=== PATIENT | female | born 1975 | race American Indian/Alaskan Native ===

== ENCOUNTER 2022-06-02 13:56 | Emergency (ER) | payer SELFPAY ==
[2022-06-02] MEDS ORDERED: dexAMETHasone 4 MG/ML VIAL IV ONE (15:23)
[2022-06-02] MEDS ORDERED: METOCLOPRAMIDE 10 MG/2 ML INJ IV ONE (15:23)
[2022-06-02] MEDS ORDERED: diphenhydrAMINE 50 MG/ML VIAL IV ONE (15:23)
[2022-06-02] MEDS ORDERED: SODIUM CHLORIDE 0.9% 1000 ML 1,000 ML IV ONE (15:23)
--- NOTE | 2022-06-02 15:28 | Emergency Department Report ---
ED Headache HPI - General Chief Complaint: Fever Stated Complaint: FEVER Time Seen by Provider: 06/02/22 14:46 - History of Present Illness Initial Comments: 47-year-old black female with a past medical history of anemia presents to the emergency department for evaluation of headache, dizziness, fatigue, and fever. She states that she went to the urgent care this morning for above symptoms stating that symptoms have been persistent for the last 3 to 4 days and worse this morning. He states that she had a fever of 103.92 days ago along with a persistent cough. She was seen at urgent care where they did an EKG, and EKG sh owed an enlarged heart for provider or urgent care so she was sent here by ambulance. Patient denies chest pain, shortness of breath, nausea, vomiting, diaphoresis, and runny nose. Timing/Duration: other (4 to 5 days) Quality: moderate Head Injury Location: frontal Associated Symptoms: fatigue, facial pain, fever/chills. denies: confusion, flushing, loss of consciousness, nausea/vomiting, nasal congestion, nasal drainage, seizures, sinus infection, stiff neck, vision changes, weakness Allergies/Adverse Reactions: Allergies cephalexin [From Keflex] Allergy (Verified 06/02/22 14:07) Unknown ED Review of Systems ROS: Stated complaint: FEVER Other details as noted in HPI Comment: All other systems reviewed and negative Constitutional: fever, malaise, weakness. denies: chills Eyes: eye pain. denies: eye discharge ENT: denies: dental pain, congestion Respiratory: denies: shortness of breath, SOB with exertion, SOB at rest, stridor, wheezing Cardiovascular: denies: chest pain, palpitations, dyspnea on exertion, orthopnea, edema, syncope, paroxysmal nocturnal dyspnea Gastrointestinal: denies: abdominal pain, nausea, vomiting, diarrhea, hematemesis, melena, hematochezia Genitourinary: denies: urgency, dysuria, frequency, hematuria, discharge Musculoskeletal: denies: back pain Neurological: headache, weakness. denies: numbness, paresthesias, confusion, abnormal gait, vertigo ED Physical Exam - General Limitations: No Limitations General appearance: alert, in no apparent distress - Head Head exam: Present: atraumatic, normocephalic - Eye Eye exam: Present: normal appearance. Absent: scleral icterus, conjunctival injection, periorbital swelling, periorbital tenderness - ENT ENT exam: Absent: normal exam (Bilateral nasal mucosal edema), normal orophraynx (Erythema to posterior oropharynx) - Neck Neck exam: Present: normal inspection, full ROM. Absent: tenderness, lymphadenopathy - Respiratory Respiratory exam: Present: normal lung sounds bilaterally. Absent: respiratory distress, wheezes, rales, rhonchi, stridor, chest wall tenderness - Cardiovascular Cardiovascular Exam: Present: regular rate, normal heart sounds - GI/Abdominal GI/Abdominal exam: Present: soft, normal bowel sounds. Absent: distended, tenderness, guarding, rebound, rigid - Extremities Exam Extremities exam: Present: normal inspection, normal capillary refill. Absent: pedal edema, joint swelling, calf tenderness - Back Exam Back exam: Present: normal inspection. Absent: CVA tenderness (R), CVA tenderness (L), vertebral tenderness - Neurological Exam Neurological exam: Present: alert, oriented X3 - Psychiatric Psychiatric exam: Present: normal affect, normal mood - Skin Skin exam: Present: warm, dry, intact, normal color ED Course Vital Signs 06/02/22 14:01 Temperature 99.4 F Pulse Rate 90 Respiratory 18 Rate Blood Pressure 110/74 [Left] O2 Sat by Pulse 97 Oximetry - Reevaluation(s) Reevaluation #1: 06/02/22 17:40 Headache resolved and patient states that she feels much better. ED Medical Decision Making - Radiology Data Radiology results: report reviewed, image reviewed Chest x-ray: Per computer downtime preliminary report: Normal - Medical Decision Making 47-year-old black female with a past medical history of anemia presents to the emergency department for evaluation of headache, dizziness, fatigue, and fever. She states that she went to the urgent care this morning for above symptoms stating that symptoms have been persistent for the last 3 to 4 days and worse this morning. He states that she had a fever of 103.92 days ago along with a persistent cough. She was seen at urgent care where they did an EKG, and EKG showed an enlarged heart for provider or urgent care so she was sent here by ambulance. Patient denies chest pain, shortness of breath, nausea, vomiting, diaphoresis, and runny nose. Physical exam unremarkable 4 bilateral nasal mucosal edema. Chest x-ray without any acute abnormalities noted. Patient given Decadron, Benadryl, and Reglan and headache was resolved. EKG daily acute ischemic abnormalities noted. Patient advised to increase fluid intake, rest, follow-up with primary care provider and cardiology for further evaluation and management. She is advised to return to the emergency department as needed. She verbalized understanding of and agreement with plan of care. Critical care attestation.: If time is entered above; I have spent that time in minutes in the direct care of this critically ill patient, excluding procedure time. ED Disposition Clinical Impression: Headache Qualifiers: Headache type: unspecified Headache chronicity pattern: acute headache Intractability: not intractable Qualified Code(s): R51.9 - Headache, unspecified Fever Qualifiers: Fever type: unspecified Qualified Code(s): R50.9 - Fever, unspecified Disposition: 01 HOME / SELF CARE / HOMELESS Is pt being admited?: No Does the pt Need Aspirin: No Condition: Stable Instructions: General Headache Without Cause, [id number], Fever, Adult, [id number] Additional Instructions: Increase intake of noncaffeinated fluids. Follow-up with your primary care provider for further evaluation and management. Follow-up with cardiology for further evaluation. Return to the emergency department as needed. Referrals: MILADYS MURDOCK MD [Staff Physician] - 3-5 Days HORACE ESTEVEZ MD [Staff Physician] - 3-5 Days Forms: Work/School Release Form(ED) Time of Disposition: 17:42
--- NOTE | 2022-06-02 17:56 | XRay Report ---
CHEST 2 VIEWS INDICATION / CLINICAL INFORMATION: FEVER, COUGH, CONGESTION. COMPARISON: None available. FINDINGS: SUPPORT DEVICES: None. HEART / MEDIASTINUM: No significant abnormality. LUNGS / PLEURA: No significant pulmonary or pleural abnormality. No pneumothorax. ADDITIONAL FINDINGS: No significant additional findings. IMPRESSION: 1. No acute findings. Signer Name: Gennaro Mccabe MD Signed: 06/02/2022 5:47 PM Workstation Name: [id number]
[2022-06-02 18:20] VITALS: BP 124/74
== END 2022-06-02 19:01 | disposition home or self-care (01) ==
LOC: ED 13:56
DX: R50.9 Fever, unspecified (principal); R51.9 Headache, unspecified; Z88.1 Allergy status to other antibiotic agents
CPT/HCPCS: 71046; 96361; 96374; 96375; 99284; J1100; J1200; J2765; J7030